=== PATIENT | female | born 1970 | race Caucasian/White ===

== ENCOUNTER → 2020-10-22 | Outpatient (CLI) | payer BC ==
--- NOTE | 2020-10-25 10:47 | MM ---
Reason for exam: screening (asymptomatic). Last mammogram was performed 9 years and 8 months ago. Physical Findings: A clinical breast exam by your physician is recommended on an annual basis and results should be correlated with mammographic findings. MG Screening Mammo w CAD Bilateral CC and MLO view(s) were taken. Prior study comparison: February 20, 2011, bilateral digital screening mammo w/CAD. May 14, 2009, bilateral digital screening mammogram. The breast tissue is heterogeneously dense. This may lower the sensitivity of mammography. Focal asymmetry upper outer right breast zone C. This finding is changed when compared with previous exams. ASSESSMENT: Incomplete: need additional imaging evaluation, BI-RAD 0 RECOMMENDATION: Special view mammogram of the right breast. If lesion persists on supplemental views, image directed ultrasound is recommended. [facility] will attempt to contact patient to return for supplemental views and ultrasound if indicated.
== END | disposition home or self-care (01) ==
LOC: RADMAMWWP 10:10
PROVIDERS: ATTEND Family Medicine
DX: Z12.31 Encounter for screening mammogram for malignant neoplasm of breast (principal)
CPT/HCPCS: 77067

== ENCOUNTER → 2020-10-28 | Outpatient (CLI) | payer BC ==
--- NOTE | 2020-10-28 10:10 | MM ---
Reason for exam: additional evaluation requested from abnormal screening. Last mammogram was performed less than 1 month ago. Physical Findings: Nurse did not find any significant physical abnormalities on exam. MG Work Up Mamm w CAD RT Spot compression CC, spot compression MLO, and ML view(s) were taken of the right breast. Prior study comparison: October 22, 2020, bilateral MG screening mammo w CAD. February 20, 2011, bilateral digital screening mammo w/CAD. The breast tissue is heterogeneously dense. This may lower the sensitivity of mammography. Superior asymmetric density becomes less defined on spot MLO and is not clearly seen on lateral and spot views. 6 month follow up recommended. These results were verbally communicated with the patient and result sheet given to the patient on 10/28/20. ASSESSMENT: Probably benign, BI-RAD 3 RECOMMENDATION: Follow-up diagnostic mammogram of the right breast in 6 months.
== END | disposition home or self-care (01) ==
LOC: RADMAMWWP 08:13
PROVIDERS: ATTEND Family Medicine
DX: R92.2 Inconclusive mammogram (principal)
CPT/HCPCS: 77065

== ENCOUNTER → 2021-06-29 | Outpatient (CLI) | payer BC ==
--- NOTE | 2021-06-29 12:11 | MM ---
Reason for exam: follow-up at short interval from prior study. Last mammogram was performed 8 months ago. Physical Findings: A clinical breast exam by your physician is recommended on an annual basis and results should be correlated with mammographic findings. MG 3D Diag Mammo W/Cad RT CC and MLO view(s) were taken of the right breast. Prior study comparison: October 28, 2020, right breast MG work up mamm w CAD RT. October 22, 2020, bilateral MG screening mammo w CAD. The breast tissue is heterogeneously dense. This may lower the sensitivity of mammography. There is no discrete abnormality. No significant new findings when compared with previous films. Results were given to the patient verbally at the time of the exam. ASSESSMENT: Negative, BI-RAD 1 RECOMMENDATION: Return to routine screening mammogram schedule for both breasts. Back on schedule.
== END | disposition home or self-care (01) ==
LOC: RADMAMWWP 09:58
PROVIDERS: ATTEND Family Medicine
DX: Z04.9 Encounter for examination and observation for unspecified reason (principal); R92.8 Other abnormal and inconclusive findings on diagnostic imaging of breast
CPT/HCPCS: 77061; 77065

== ENCOUNTER → 2021-12-14 | Outpatient (CLI) | payer BC ==
--- NOTE | 2021-12-14 14:18 | US ---
EXAMINATION TYPE: US thyroid st tissue head/neck DATE OF EXAM: 12/14/2021 COMPARISON: NONE CLINICAL HISTORY: E04.1 SINGLE THYROID NODULE. GLAND SIZE: Right Lobe: 4.6 x 0.9 x 1.5 cm Overall Parenchyma: heterogenous Left Lobe: 4.1 x 1.0 x 1.4 cm Overall Parenchyma: heterogeneous Isthmus Thickness: 0.26 cm NODULES RIGHT: # of nodules measured on right: 1 1. 0.34 X 0.26 x 0.34 cm, lower lateral, TIRADS Score: 4 TIRADS Category 4: Moderately Suspicious Composition: Solid or almost completely solid (2 points). Echogenicity: Hypoechoic (2 points). Shape: Wider than tall (0 points). Margin: Smooth (0 points). Echogenic foci: None or large comet-tail artifacts (0 points) Recommendation: If >1.5cm: FNA; If >1cm: Follow up at 1,3,5 years LEFT: # of nodules measured on left: 1 1. 0.50 X 0.49 x 0.43 cm, mid mid, TIRADS Score: 3 TIRADS Category 3: Mildly Suspicious Composition: Solid or almost completely solid (2 points). Echogenicity: Hyperechoic or isoechoic (1 point). Shape: Wider than tall (0 points). Margin: Smooth (0 points). Echogenic foci: None or large comet-tail artifacts (0 points) Recommendation: If >2.5cm: FNA; If >1.5cm: Follow up at 1,3,5 years ISTHMUS: # of nodules measured in the isthmus: 0 Bilateral neck scanned, no evidence of lymphadenopathy. IMPRESSION: Subcentimeter thyroid nodules as described above.
== END | disposition home or self-care (01) ==
LOC: RADUSWWP 12:53
PROVIDERS: ATTEND Family Medicine
DX: E04.2 Nontoxic multinodular goiter (principal)
CPT/HCPCS: 76536